=== PATIENT | female | born 1990 | race Caucasian/White ===

== ENCOUNTER 2019-06-11 11:12 | Emergency (ER) | payer OTHER ==
[2019-06-11 11:20] VITALS: BP 106/77; PULSE 104; TEMP 98.2
--- NOTE | 2019-06-11 11:24 | PDOC ---
Rapid Medical Evaluation Chief Complaint: Cold Symptoms Time Seen by Provider: 06/11/19 11:18 Medical Evaluation: Allergies Allergy/AdvReac Type Severity Reaction Status Date / Time No Known Allergies Allergy Verified 06/11/19 11:17 06/11/19 11:20 HPI: The patient is a 28 y/o female with no past medical history, who presents for worsening cough and sob x 1 days. Pt initially had fever and was tested for covid, which was + (friday). The patient has + exposure to coronavirus. - Recent travel. - difficulty breathing, shortness of breath, chest pain, lightheadedness, dizziness nausea, vomiting, and diarrhea. Other 12 point ROS reviewed and negative. EXAM: General: NAD, well-appearing, AAO x3. vss ENT: No rhinorrhea or nasal congestion. Neck: FROM, no midline tenderness Lungs: Clear to auscultation bilateral without wheezes rales or rhonchi. Normal excursion. Patient is able to speak in full sentences. Heart: Regular rate and rhythm, S1-S2 present, no murmurs rubs or gallops. Abdomen: Non-distended MSK/Extremities: no decreased ROM, no obvious deformities. No cyanosis Neuro: Normal gait, cranial nerves II through XII grossly intact. SKIN: No rashes, bruising. Color normal appering A/P: worsening Cough Patient has no past medical history, + for covid 6 days ago cxr ordered Discharge Disposition - Diagnosis Cough - Referrals - Patient Instructions - Post Discharge Activity
--- NOTE | 2019-06-11 11:53 | PDOC ---
*Physical Exam - Vital Signs Last Vital Signs Temp Pulse Resp BP Pulse Ox 98.2 F 104 H 18 106/77 98 06/11/19 11:17 06/11/19 11:17 06/11/19 11:17 06/11/19 11:17 06/11/19 11:17 Medical Decision Making - Medical Decision Making 06/11/19 12:06 CXR- Dense breast tissue 2/2 implants. No acute pulmonary disease. Discharge home with Covid-19 instructions. Discharge - Discharge Information Problems reviewed: Yes Clinical Impression/Diagnosis: Cough, COVID-19 Condition: Fair Disposition: HOME - Admission No - Follow up/Referral - Patient Discharge Instructions Patient Printed Discharge Instructions: [facility]-Coronavirus Instructions Additional Instructions: Drink 2-3 L of water daily Take Tylenol 650 mg every 4 hours for fever and pain Return to the nearest ER if short of breath, unable to swallow or feeling sicker Followup with your doctor in one to 2 days Covid-19 Symptoms and Knowing When to Stay Home and Return to Work The following is the most recent guidance from our Infection Prevention and Control team on the symptoms and duration of Covid-19, along with when to stay home from work, when you may return, and what procedures to follow when you are ready to come back. Go to [email or web address] for instructthe miost up to date Covid-19 information as well as order to isolate. Please call [facility] : [facility] CORONAVIRUS HOTLINE: What are the most common symptoms of Covid-19? - Muscle aches - Loss of energy and appetite - Persistent cough - Low grade fever lasting 24 hours or more, causing the person to feel feverish with chills If I have Covid-19, how long can I expect to feel sick? - Typically one week. - The majority of individuals feel better in 5 to 7 days with rest and [id number] cold and flu medications. How does illness progress in cases of Covid-19? - A few individuals progress to pneumonia (infection of the lungs) and/or pneumonitis (inflammation of the lungs). - Pneumonia/pneumonitis causes shortness of breath, worsening cough and in most cases, fever. - Individuals with the symptoms of Covid-19 who develop a worsening cough and shortness of breath must seek care quickly. If Im concerned about my symptoms or feel unwell, when must I stay home from work/ school? If you have muscle aches, cough, fatigue and low-grade fever, do not go to work/ school - Post Discharge Activity
== END 2019-06-11 12:14 | disposition home or self-care (01) ==
LOC: JER 11:12
DX: R05 Cough (principal); B97.29 Other coronavirus as the cause of diseases classified elsewhere
CPT/HCPCS: 71045-TC-FY; 99283-25